=== PATIENT | female | born 1955 | race Caucasian/White ===

== ENCOUNTER 2020-02-09 09:25 | Inpatient (IN) | payer OTHER ==
[~2020-02-09] VITALS: Ht 152.4 cm; Wt 77.6 kg
[~2020-02-09 09:25] MED LIST: BACTRIM DS TAB1 EACH PO; DOXYCYCLINE 10100 MG PO; DUONEB 2.5-0.5 M3 ML INH; FENOFIBRATE145 M1 PO; FENOFIBRATE160 MG PO; LEVAQUIN 500 M500 M2 PO; LEVOTHYROXIN0.125 M1 PO; LOTRISONE CREAM15 GM TOP; METRONIDAZOLE45 GM TOP; OLANZAPINE5 MG PO; PREDNISONE 10 M10 MG PO; PREMARIN0.9 M1 PO; PRILOSEC 20 MG20 MG PO; PROPRANOLOL 20M20 M1 PO; VALIUM5 MG PO; ZOLOFT100 MG PO; ZOLOFT50 MG PO
[2020-02-09 10:20] LABS: URINE BLOOD TRACE (Negative); URINE COLOR YELLOW; URINE GLUCOSE-RANDOM* NEGATIVE (Negative); URINE KETONES NEGATIVE (Negative); URINE PROTEIN (DIPSTICK) TRACE (Negative)
[2020-02-09 10:27] LABS: URINE CLARITY SL HAZY; URINE LEUKOCYTES-REFLEX 1+ (Negative); URINE NITRITE-REFLEX POSITIVE (Negative)
[2020-02-09 10:28] LABS: ICTOTEST (BILI CONFIRMATORY) Negative (Negative); URINE BILIRUBIN NEGATIVE (Negative)
[2020-02-09 10:35] LABS: CALCIUM 8.8 mg/dL (8.5-10.1); POTASSIUM 3.3 mmol/L (3.5-5.1)
[2020-02-09 10:42] LABS: BACTERIA-REFLEX >30 Many /HPF (None Seen); CRYSTALS None Seen /LPF (None Seen); HYALINE CASTS 0-3 Few /LPF (None Seen); SQUAMOUS 4-10 Moderate /LPF (0-3); URINE RBC 0-2 Rare /HPF (0-2); URINE WBC-REFLEX >25 Many /HPF (0-5)
[2020-02-09 10:43] LABS: ALBUMIN 3.1 g/dL (3.4-5.0); DIRECT BILIRUBIN 0.2 mg/dL (<0.1-0.2); TOTAL BILIRUBIN 0.6 mg/dL (0.2-1.0); TOTAL PROTEIN 7.9 g/dL (6.4-8.2)
[2020-02-09 11:21] LABS: ABSOLUTE NEUTROPHILS 7.8 thou/uL (1.4-8.2); BASOPHILS 0.4 % (0.0-2.0); EOSINOPHILS 0.8 % (0.0-3.0); HEMATOCRIT 37.4 % (37.0-47.0); HEMOGLOBIN 12.6 gm/dL (12.0-15.0); MCH 30.3 pg (26.0-34.0); MCHC 33.7 g/dL (28.0-37.0); MCV 90.1 fL (80.0-100.0); PLATELET COUNT 195 thou/uL (150-400); POLYS 85.8 % (36.0-66.0); RBC 4.15 mil/uL (4.20-5.00); RDW 16.6 % (10.5-14.5); WBC 9.1 thou/uL (4.0-11.0)
[2020-02-09 12:24] VITALS: BP 132/43
[2020-02-09 12:57] VITALS: BP 133/57
[2020-02-09 13:10] VITALS: BP 127/54
[2020-02-09 13:31] LABS: AMP/METHAMP Negative (Negative); BARBITURATES Negative (Negative); BENZODIAZEPINES POSITIVE (Negative); COCAINE Negative (Negative); METHADONE Negative (Negative); OPIATES Negative (Negative); PCP Negative (Negative)
[2020-02-09 13:56] LABS: FOLIC ACID 2.1 ng/mL (8.6-58.9); TSH 2.649 uIU/mL (0.358-3.740)
--- NOTE | 2020-02-09 16:43 | NUR ---
ASSUMED CARE OF PT ON ARRIVAL TO UNIT AT APPROX 1300. PT IS PLEASANTLY CONFUSED, AWARES SHE IS IN A HOSPITAL BUT IS UNABLE TO ANSWER ANY ORIENTATION QUESTIONS. HOWEVER, DENIES BEING CONFUSED. SEVERE RASH NOTED TO BODY. WOUND CARE CONSULT PLACED. PT ASKING ABOUT RESUMING HOME MEDS - PSYCH CONSULT PLACED. IV ABX INFSUING PER ORDER. VITALS NORMAL. GOOD APPETITE. ISO PRECAUTIONS IN PLACE WHILE COVID TEST RESULTS. ALL FALL PRECAUTIONS IN PLACE.
[2020-02-09 20:05] VITALS: BP 116/50
--- NOTE | 2020-02-09 22:33 | NUR ---
PT RESTING IN BED TV ON. PT TALKS TO STAFF WITH HER EYES SHUT BUT DOES ENGAGE IN CONVERSATION. CREAM APPLIED TO CHEST, FACE AND PANNUS RASH. PT COMPLIANT WITH MEDS AND HS SNACK. GIRON TO ANGEL. BED ALARM ON. COVID NEGATIVE ENAMELER AND PROVIDER NOTIFIED. PT ALERT TO SELF AND SITUATION, NOT TIME.
--- NOTE | 2020-02-09 23:48 | NUR ---
REPORT GIVEN TO ONCOMING NURSE MID SHIFT. PT DID TRY TO GET OOB TO USE RESTROOM X 1. PT HAD CALLED NURSE IN EARLIER REPORTING HER GIRON HAD FALLEN OUT. BED ALARM ON.
--- NOTE | 2020-02-10 04:03 | NUR ---
ASSUMED CARE OF PATIENT AT APPROXIMATELY 2330. RECEIVED IN REPORT THAT PATIENT CONTINUES TO HAVE RASH OVER MAJORITY OF BODY AND SKIN HAD BEEN CLEANSED WITH CREAM APPLIED PRIOR TO ASSUMING CARE. PATIENT CALLS APPROPRIATELY. FALL PRECAUTIONS IN PLACE. NO OTHER CONCERNS AT THIS TIME. PATIENT APPEARS TO BE PROGRESSING TOWARDS GOALS.
[2020-02-10 04:09] VITALS: BP 149/64
[2020-02-10 05:21] LABS: ABSOLUTE NEUTROPHILS 3.9 thou/uL (1.4-8.2); BASOPHILS 0.7 % (0.0-2.0); EOSINOPHILS 1.4 % (0.0-3.0); HEMOGLOBIN 11.1 gm/dL (12.0-15.0); LYMPHOCYTES 19.2 % (24.0-44.0); MCH 29.9 pg (26.0-34.0); MCHC 32.7 g/dL (28.0-37.0); MCV 91.2 fL (80.0-100.0); MONOCYTES 5.4 % (1.0-8.0); PLATELET COUNT 188 thou/uL (150-400); POLYS 73.3 % (36.0-66.0); RBC 3.73 mil/uL (4.20-5.00); RDW 16.7 % (10.5-14.5); WBC 5.4 thou/uL (4.0-11.0)
[2020-02-10 05:29] LABS: CALCIUM 8.5 mg/dL (8.5-10.1); CREATININE 0.9 mg/dL (0.6-1.0); MAGNESIUM 1.7 mg/dL (1.8-2.4); POTASSIUM 3.3 mmol/L (3.5-5.1)
[2020-02-10 07:40] VITALS: BP 133/54
--- NOTE | 2020-02-10 13:54 | NUR ---
INITIAL ASSESSMENT: SW reviewed chart and spoke with nursing and attending physician. Pt was admitted from [facility] due to AMS/frequent falls/weakness. Pt placed in Enhanced Isolation to r/o COVID-19. Pt's test is negative. Isolation precautions have been discontinued. Pt to transfer off 3W when a room is available. Psych and wound care consulted. Pt is on IV abx. Therapy ordered to evaluate pt for discharge needs. SW spoke with pt via phone. Introduced role of SW. Pt appears to be alert/orientated. Pt reports she lives alone in her apt. Prior to admission, she was not using any DME. No hx of HH services or post-acute placement. Pt's PCP is Dr. Cordova. SW discussed possible discharge needs: post-acute placement v. Home with HH. Pt states she will not need anything when she goes home. Recommendation made for pt to consider post-acute placement. 5N to evaluate pt for possible admission if pt will be agreeable. No weekend discharge planned. ANTON is following to assist as needed with discharge planning.
[2020-02-10] MEDS ORDERED: GLUCOPHAGE500 MG PO (15:00)
[2020-02-10] MEDS ORDERED: DIAZEPAM 5 MG5 M1 PO (15:00)
[2020-02-10] MEDS ORDERED: PROPRANOLOL 20M20 M1 PO (15:01)
[2020-02-10] MEDS ORDERED: ZYPREXA5 MG PO (15:01)
[2020-02-10] MEDS ORDERED: SERTRALINE HCL100 MG PO (15:02)
[2020-02-10] MEDS ORDERED: SYNTHROID125 MC1 PO (15:02)
[2020-02-10] MEDS ORDERED: PREMARIN0.9 M1 PO (15:03)
[2020-02-10] MEDS ORDERED: TRICOR145 MG PO (15:03)
[2020-02-10 16:10] VITALS: BP 126/36
--- NOTE | 2020-02-10 18:04 | NUR ---
RN HAS ASSUMED PT'S CARE AT 0700AM, PT IS A&OX3 AT MOST OF TIME, PT CAN FOLLOW COMMANDS, PT IS CONFUSED AT TIME, PT IS CONTINUING IV ABX AND WOUNG CARE , PT'S VS ARE STABLE, PT DENIES PAIN AND SOB .
[2020-02-10 19:18] VITALS: BP 114/47
--- NOTE | 2020-02-10 19:26 | NUR ---
PT'S HOME MEDICATIONS HAVE UPDATED,
--- NOTE | 2020-02-10 23:18 | NUR ---
REPORT CALLED TO RHODA. CARNES TO BE MOVED TO ROOM 460 VIA BED.
[2020-02-10 23:55] VITALS: BP 132/44
--- NOTE | 2020-02-11 03:32 | NUR ---
PATIENT TRANSFERRED FROM VIA BED WITH RN AND HOTEL RECREATIONAL FACILITIES MANAGER. MACK TO D/D WITH MEREDITH URINE. ALERT TO SELF ONLY. CONFUSION WITH SEVERAL ATTEMPTS TO REORIENT. PATIENT HAS SET HER BED ALARM OFF X4 AT TIME OF NOTE SINCE TRANSFER AT 2345. REPORT GIVEN BY ANNE-MARIE ON 3W BEFORE TRANSFER. GETTING OOB AND NOT STABLE ON HER FEET. MEDICATED WITH DIAZEPAM AND VICODIN IN AN ATTEMPT TO LESSEN PATIENTS ANXIETY. WILL MONITOR.
[2020-02-11 10:04] VITALS: BP 153/87
[2020-02-11 13:28] VITALS: BP 153/87
--- NOTE | 2020-02-11 15:30 | NUR ---
PT IS A&OX2 AND CONFUSED STATE, PT PULLED GIRON OUT THIS MORNING AND DR ROMERO WAS NOTIFIED. PT IS CONTINENT TO BLADDER, FORGETFUL AND IMPULSIVE. FALL PRECAUTIONS IN PLACE, WILL CONTINUE TO MONITOR.
[2020-02-11 16:16] VITALS: BP 138/76
[2020-02-11 19:41] VITALS: BP 134/55
[2020-02-12 05:59] LABS: HEMATOCRIT 34.1 % (37.0-47.0); HEMOGLOBIN 11.1 gm/dL (12.0-15.0); MCH 29.5 pg (26.0-34.0); MCHC 32.5 g/dL (28.0-37.0); MCV 90.8 fL (80.0-100.0); RBC 3.76 mil/uL (4.20-5.00); WBC 6.6 thou/uL (4.0-11.0)
[2020-02-12 06:17] LABS: CALCIUM 8.7 mg/dL (8.5-10.1); POTASSIUM 4.2 mmol/L (3.5-5.1)
[2020-02-12 07:16] VITALS: BP 142/55
[2020-02-12 15:31] VITALS: BP 133/56
--- NOTE | 2020-02-12 16:26 | NUR ---
PT A&OX4, VSS, DENIES PAIN. PATIENT TOLERATING DIET. PATIENT ISNT IMPULSIVE AND CALLS NURSING STATION FOR NEEDS. NO SIGNS OF DISTRESS. WILL CONTINUE TO MONITOR.
[2020-02-12 19:30] VITALS: BP 133/80
--- NOTE | 2020-02-13 05:20 | NUR ---
VSS-AFEBRILE. ALERT AND ORIENTED X 3, CAN GET CONFUSED TO DATE AND WHICH HOSPITAL SHE IS IN. OCCASIONAL C/O GENERALIZED ALL OVER BODY ACHES AND PAINS, PAIN IS PARTIALLY RELIEVED WITH PO PAIN MEDICATION. REMAINS IMPULSIVE, GETTING OUT OF BED WITHOUT CALLING FOR ASSISTANCE. FALL PRECAUTIONS IN PLACE.
[2020-02-13 08:56] VITALS: BP 135/50
--- NOTE | 2020-02-13 08:57 | NUR ---
PATIENT IS A CANDIDATE FOR ACUTE REHAB PER JENSEN PEREIRA WITH DR. MONSON. PATIENT SEEN 02/10/20 FOR REHAB CONSULT. PATIENT EXPRESSED TO FATOUMATA THAT DATE CONCERN REGARDING COSTS. HOTEL ROOM ATTENDANT CONTACTED BY FILM ARCHIVIST ON 02/10/20 AND COSTS DISCUSSED. HOTEL ROOM ATTENDANT TO MEET WITH PATIENT AND SHARE OPTIONS. PATIENT CAN BE ADMITTED TO N IF PATIENT CHOOSES TO COME TO ACUTE REHAB.
--- NOTE | 2020-02-13 10:40 | HC ---
[facility] [place] [address] CONSULTATION Name: PER WEBER Room #: 461-P ADM IN M.R.#: [id number] Admission: 02/09/20 Attend Phys: Yoshi Langford MD Discharge: Date of : 51 Report #: [id number] THIS REPORT FOR: cc: Anil Cordova MD, Rene P. MD Stephens, Thad A. MD ~ CC: Yoshi Cordova DATE OF SERVICE: 02/09/2020 WOUND CARE CONSULTATION PERSONAL PHYSICIAN: Anil Cordova M.D. CHIEF COMPLAINT: Fungal rash. HISTORY OF PRESENT ILLNESS: This is a 64-year-old white female who presents to the Emergency Department for evaluation of frequent falls. The patient was found in the Emergency Department to have urinary tract infection. The patient also found to have significant dermatitis under each breast, under her pannus and around her mouth consistent with a fungal dermatitis. We have been asked to assist in the care of this at this time. The patient denies any other associated wounds. PAST MEDICAL HISTORY: History of bipolar disease, anxiety, depression, recurrent falls, COPD. CURRENT MEDICATIONS: Multiple, I reviewed the patient's medication list. DRUG ALLERGIES: PENICILLIN, SULFA AND CODEINE. SOCIAL HISTORY: The patient smokes 1 pack of cigarettes daily, does not drink alcohol. FAMILY HISTORY: Not pertinent to current medical condition. REVIEW OF SYSTEMS: CONSTITUTIONAL: The patient denies fevers or chills. NEUROLOGIC: The patient complains of overall generalized weakness, but no isolated weakness in arms or legs. EYES: No complaints. ENT: No complaints. CARDIAC: The patient denies chest pain or palpitations, but does have peripheral edema. RESPIRATORY: The patient denies shortness of breath, cough or wheezes. [facility] [address] [place] [address] CONSULTATION Name: PER WEBER Room #: 461-P [facility] IN [facility].#: [id number] Admission: 02/09/20 Attend Phys: Yoshi Langford MD Discharge: Date of : 51 Report #: [id number] GASTROINTESTINAL: The patient denies nausea, vomiting or abdominal pain. GENITOURINARY: The patient is currently being treated for urinary tract infection with urgency and frequency. MUSCULOSKELETAL: No complaints. SKIN: There is fungal rash underneath breast, under her pannus and around her mouth. PHYSICAL EXAMINATION: VITAL SIGNS: Temperature 35.8, pulse 78, respirations 20, BP 149/64. GENERAL: This is an alert and oriented x 3, pleasant white female who is in no obvious distress. HEENT: Normocephalic, atraumatic. Mucous membranes are somewhat dry. Pupils are round. Sclerae are white. There is a fungal rash around in the perioral region with some mild excoriation, but no signs of actual infection. NECK: Supple and nontender. LUNGS: Clear with slightly diminished breath sounds. HEART: Regular. CHEST WALL: Shows fungal dermatitis underneath each breast and extending down onto the abdominal wall and below the pannus. ABDOMEN: Soft, otherwise nontender except for the mild excoriation under the pannus. EXTREMITIES: The patient moves all extremities without difficulty. There is trace to 1+ edema bilateral lower extremities with distal pulses intact. NEUROLOGIC: Cranial nerves 2-12 grossly intact. Motor and sensory grossly intact. LABORATORY DATA: White count 9.1, hemoglobin 12.6, BUN 10, creatinine 0.9, albumin 3.1. IMPRESSION: 1. Fungal dermatitis underneath each breast and the pannus in the perioral region. 2. Diabetes mellitus type 2. 3. Frequent falls. 4. Protein-calorie malnutrition, moderate, with an albumin of 3.1. 5. Urinary tract infection. PLAN: We will start Lotrisone to all rash sites twice daily after a Hibiclens wash. We will max p.o. protein for healing. Continue all other current medications. I appreciate ability to consult. <ELECTRONICALLY SIGNED> By: Tommy Stevens MD 02/13/20 1040 [id number] Tommy Stevens MD /nt
--- NOTE | 2020-02-13 14:00 | NUR ---
Received awake on bed. Due medications given as prescribed, able to swallow meds w/o difficulty. On room air. Vital signs stable. On MS, not on telemetry; no signs and complain of chest pain, crushing sensation and heaviness. On regular diet- tolerating well; no nausea, no vomiting and no abdominal pain noted. On blood sugar monitoring- taken and recorded accordingly; with sliding scale insulin ordered. With SL at R wrist- intact and flushing well; on Iv antibiotics. Assisted in ADLs. Pt confused- re-oriented from time to time; impulsive- gets out of the bed quickly without assistance, kept near nurses station, falls bundle in place. On and off incontinence, able to go to the toilet using walker and gait belt- assisted. Pt very keen to discharge today- Dr Langford informed; a/w ID's recommendation re: antibiotics and pt to be possible discharged to SNF- pt updated and informed; CM informed as well and a/w discharge disposition. Pt became very agitated and wanting to leave the unit and go home, does not want to go back to her room- Dr Langford informed- order for PRN haldol made, given as prescribed. To continue monitoring patient.
[2020-02-13 14:33] VITALS: BP 126/55
[2020-02-13 15:17] VITALS: BP 146/59
--- NOTE | 2020-02-13 16:06 | NUR ---
CARE TEAM RECOMMENDING SKILLED POST ACUTE CARE STAY. 5N ASSESSED AND RECOMMEND SNF. CM MET WITH PT AT BEDSIDE THIS DAY AND INDICATED THE ABOVE. CM PROVIDED SNF LIST FOR REVIEW. PT INDICATED SHE REFUSED TO GO FOR REHAB STAY UPON DC. CM ATTEMPTED PC TO PT'S BROTHER AND GOT VM. CM NOTIFIED DR. ROMERO AND HE INDICATED THAT WE MIGHT LOOK AT DC HOME TOMORROW WITH HH SERVICES AND HOTLINE. CM TO FOLLOW INDICATED WITH DC PLANNING.
[2020-02-13 20:06] VITALS: BP 145/46
[2020-02-13 20:21] VITALS: BP 114/60
--- NOTE | 2020-02-14 03:56 | NUR ---
PATIENT AOX1 CONFUSED AND FORGETING. PAIN CONTROLLED THIS SHIFT.PATIENT HAD CREAM ON BOTH BREAST, GROIN AREA AND RIGHT ELBOW. PATIENT ENCOURAGED FLUIDS. PATIENT AMBULATEDS TO THE BATHROOM SLOWLY WITH STEADY GAIT USING A WALKER.PATIENT IN BED ASLEEP AT THIS TIME BREATHING REGULAR AND UNLABOURED.
[2020-02-14 05:28] LABS: HEMATOCRIT 33.2 % (37.0-47.0); HEMOGLOBIN 10.8 gm/dL (12.0-15.0); MCH 29.4 pg (26.0-34.0); MCHC 32.6 g/dL (28.0-37.0); MCV 90.2 fL (80.0-100.0); RBC 3.68 mil/uL (4.20-5.00); RDW 16.8 % (10.5-14.5); WBC 6.1 thou/uL (4.0-11.0)
[2020-02-14 05:41] LABS: CALCIUM 8.5 mg/dL (8.5-10.1); POTASSIUM 3.6 mmol/L (3.5-5.1)
[2020-02-14 08:00] VITALS: BP 142/55
[2020-02-14] MEDS ORDERED: FLUCONAZOLE 10100 MG PO (08:44)
[2020-02-14] MEDS ORDERED: CEFDINIR300 MG PO (08:44)
[2020-02-14] MEDS ORDERED: FOLIC ACID1 MG PO (08:45)
[2020-02-14] MEDS ORDERED: CLOTRIMAZOLE-BE15 GM TOP (08:45)
[2020-02-14] MEDS ORDERED: B-12500 MCG PO (08:45)
--- NOTE | 2020-02-14 11:03 | NUR ---
Received awake on bed. Due medications given as prescribed.
--- NOTE | 2020-02-14 11:11 | NUR ---
SEEMS TO BE IN GOOD SPIRIT.SHE VOIDED 2X.SHE PLANS TO BE DISCHARGED TODAY AT HOME WITH VISITING NURSES -SEE SPRINKLER FITTER NOTES FOR SPECIFICS . COMFORTABLE NO PAIN.WALKED TO THE BATHROOM AND BACK WITH ASSISTANCE.
--- NOTE | 2020-02-14 11:46 | NUR ---
I have reviewed the student's documentation.
[2020-02-14] MEDS ORDERED: ULTRA-LIGHT RO1 EACH (11:59)
[2020-02-14 14:00] VITALS: BP 115/45
--- NOTE | 2020-02-14 14:34 | NUR ---
Received awake on bed. Due medications given as prescribed. On MS, not on telemetry; no signs of nausea, vomiting and abdominal pain noted. On room air. Vital signs stable. On regular diet- tolerating well; no nausea, no vomiting and no abdominal pain noted. On blood sugar monitoring- taken and recorded accordingly; with sliding scale insulin ordered. Falls bundle in place. Assisted in ADLs. Continent of bowel and bladder, with occassional urgency; able to go to the toilet using walker, gait belt and standby assist. With R FA SL. Possible discharge today- a/w physician's rounds. Pt appears less agitated and irritable today. To continue monitoring patient. Pt seen and examined by Dr Langford this am, discharge orders made- CM informed; a/w delivery of walker; transport and home health to be set up.
[2020-02-14 15:54] VITALS: BP 115/45
--- NOTE | 2020-02-14 15:59 | NUR ---
FAXED REFERRAL TO [facility] HH SPOKE WITH JAVIER IN INTAKE SHE RECEIVED REFERRAL AND CAN ACCEPT. PT DISCHARGING TODAY FAXED DC ORDERS/.SUMMARY RECEIVED CONFIRMATION AND THEY WILL NOTIFY PT TIME OF VISITS.
--- NOTE | 2020-02-14 16:18 | NUR ---
CARE TEAM INDICATED THAT PT IS MEDICALLY STABLE TO DC HOME THIS DAY SHE IS REFUSING POST ACUTE CARE PLACEMENT. PT IS TO DC HOME WITH [facility] PT, OT, NURSING. PT INDICATED SHE DIDN'T WANT THEM BUT CM INDICATED THAT THEY ARE RECOMMENDED AND THAT THEY WILL BE ARRAGNED.[facility] CAN ACCEPT. PT WAS ISSUED A FWW FOR USE UPON DC BY PROVIDER PLUS. CM CALLED AND NOTIFIED PT'S BROTHER WHO IS HIS LISTED CONTACT. CM EXPLAINED THE ABOVE. HE EXPRESSED CONCERN ABOUT PT RETURNING HOME. THERE ISN'T A DPOA IN PLACE AT THIS TIME. CM ARRANGED [facility] FOR PT FOR WC VAN TRANSPORT BETWEEN [id number]. CM TO HOTLINE PT. NO OTHER INTERVENTION INDICATED. CASE CLOSED.
== END 2020-02-14 17:00 | disposition home health service (06) | DRG 689 ==
LOC: ER 09:25 → 3W 12:15 → EROBS 12:15 → 3W 12:59 → 4W 02-10 23:48
PROVIDERS: Emergency Medicine; Nurse Practitioner; ADMIT Hospitalist; ATTEND Hospitalist
DX: N30.90 Cystitis, unspecified without hematuria (principal); G93.41 Metabolic encephalopathy; E44.0 Moderate protein-calorie malnutrition; B96.20 Unspecified Escherichia coli [E. coli] as the cause of diseases classified elsewhere; R21 Rash and other nonspecific skin eruption; N64.59 Other signs and symptoms in breast; F41.9 Anxiety disorder, unspecified; F31.9 Bipolar disorder, unspecified; E11.9 Type 2 diabetes mellitus without complications; B36.8 Other specified superficial mycoses; E03.9 Hypothyroidism, unspecified; L30.4 Erythema intertrigo; J44.9 Chronic obstructive pulmonary disease, unspecified; E87.6 Hypokalemia; F17.200 Nicotine dependence, unspecified, uncomplicated; R41.0 Disorientation, unspecified; M19.90 Unspecified osteoarthritis, unspecified site; E53.8 Deficiency of other specified B group vitamins; Z20.828 Contact with and (suspected) exposure to other viral communicable diseases; Z90.49 Acquired absence of other specified parts of digestive tract; Z90.410 Acquired total absence of pancreas; Z79.84 Long term (current) use of oral hypoglycemic drugs; Z79.899 Other long term (current) drug therapy; Z88.5 Allergy status to narcotic agent; Z88.0 Allergy status to penicillin; Z88.2 Allergy status to sulfonamides; Z91.09 Other allergy status, other than to drugs and biological substances; Z68.33 Body mass index [BMI] 33.0-33.9, adult
CPT/HCPCS: 10047; 10080

== ENCOUNTER 2020-05-17 10:11 | Inpatient (IN) | payer OTHER ==
[2020-05-17] VITALS (37 sets, daily range): BP systolic 74–136; BP diastolic 30–100
[~2020-05-17] VITALS: Ht 152.4 cm; Wt 73.1 kg
[~2020-05-17 10:11] MED LIST changes: +B-12500 MCG PO; +CEFDINIR300 MG PO; +CLOTRIMAZOLE-BE15 GM TOP; +DIAZEPAM 5 MG5 M1 PO; +FLUCONAZOLE 10100 MG PO; +FOLIC ACID1 MG PO; +GLUCOPHAGE500 MG PO; +SERTRALINE HCL100 MG PO; +SYNTHROID125 MC1 PO; +TRICOR145 MG PO; +ULTRA-LIGHT RO1 EACH; +ZYPREXA5 MG PO
[2020-05-17 10:57] LABS: URINE BLOOD TRACE (Negative); URINE CLARITY CLOUDY; URINE COLOR YELLOW; URINE GLUCOSE-RANDOM* NEGATIVE (Negative); URINE KETONES TRACE (Negative); URINE PROTEIN (DIPSTICK) TRACE (Negative); URINE UROBILINOGEN 0.2 E.U./dl (0.2-1.0)
[2020-05-17 11:27] LABS: ABSOLUTE NEUTROPHILS 7.8 thou/uL (1.4-8.2); BASOPHILS 0.6 % (0.0-2.0); EOSINOPHILS 1.1 % (0.0-3.0); HEMATOCRIT 43.3 % (37.0-47.0); LYMPHOCYTES 12.2 % (24.0-44.0); MCH 29.7 pg (26.0-34.0); MCHC 34.5 g/dL (28.0-37.0); MONOCYTES 3.9 % (1.0-8.0); PLATELET COUNT 104 thou/uL (150-400); POLYS 82.2 % (36.0-66.0); RBC 5.04 mil/uL (4.20-5.00); RDW 15.5 % (10.5-14.5); WBC 9.4 thou/uL (4.0-11.0)
[2020-05-17 11:36] LABS: CALCIUM 8.9 mg/dL (8.5-10.1); CREATININE 1.9 mg/dL (0.6-1.0)
[2020-05-17 11:38] LABS: POTASSIUM 3.6 mmol/L (3.5-5.1)
[2020-05-17 11:40] LABS: URINE LEUKOCYTES-REFLEX 3+ (Negative); URINE NITRITE-REFLEX POSITIVE (Negative)
[2020-05-17 11:42] LABS: ICTOTEST (BILI CONFIRMATORY) Negative (Negative); URINE BILIRUBIN NEGATIVE (Negative)
[2020-05-17 11:45] LABS: BACTERIA-REFLEX >30 Many /HPF (None Seen); CASTS None Seen /LPF (None Seen); CRYSTALS None Seen /LPF (None Seen); SQUAMOUS 4-10 Moderate /LPF (0-3); URINE RBC 0-2 Rare /HPF (0-2); URINE WBC-REFLEX >25 Many /HPF (0-5)
[2020-05-17 11:47] LABS: ALBUMIN 3.1 g/dL (3.4-5.0); TOTAL BILIRUBIN 0.7 mg/dL (0.2-1.0); TROPONIN-I 0.08 ng/mL (<0.06)
--- NOTE | 2020-05-17 12:09 | EKG ---
[place] [address] [facility] [place] [address] ELECTROCARDIOGRAM REPORT Name: PER WEBER Room #: [facility]#: [id number] Admission: 05/17/20 Attend Phys: Discharge: Date of : 51 Report #: [id number] [facility] ED Test Date: 2020-05-17 Test Time: 10:34:49 Pat Name: PER WEBER Department: Room: Gender: F Plant Maintenance Mechanic: tha : 1955 Requested By: Maldonado Rodas Order Number: [id number] MD: Rickey Llanos Measurements Intervals [place] Rate: 69 P: FL: QRS: -6 QRSD: 120 T: 246 QT: 449 QTc: 481 Interpretive Statements Atrial flutter LVH w/ repol abnormalities, possible ischemia Compared to ECG 02/16/2014 10:04:35 Possible ischemia now present Sinus rhythm no longer present Poor R-wave progression no longer present Electronically Signed On 05-17-2020 12:09:35 DOUBLE BACK OPERATOR by Rickey Llanos [email or web address] <ELECTRONICALLY SIGNED> By: Rickey Llanos MD, [facility] 05/17/20 1209 1034 103 Rickey Llanos MD, FACC /EPI
--- NOTE | 2020-05-17 14:59 | NUR ---
VAT CONSULTED TO PLACE CVL. 6FR JACC TL CVL PLACED IN LEFT IJ, DOCUMENTED. TRIMMED 25CM AND 5CM EXTERNAL. CXR ORDERED TO VERIFY PLACEMENT. PT TOLERATED WELL.
--- NOTE | 2020-05-17 15:55 | NUR ---
FROM ER, ADMITTED TO ICU #[id number] WITH SEPSIS. LEVOPHED INFUSING 10 MCG/MIN. REDRESSED CENTRAL LINE ACCESS THAT PT PULLED ON WHILE IN CT. PORTABLE CHEST XRAY PENDING FOR CONFIRMATION OF CENTRAL LINE PLACEMENT. NS AND CEFEPIME IV PENDING CONFIRMATION OF LINE PLACEMENT, ALSO. SCATTERED STOOL ON ABD, KYLE LEGS ESPECIALLY FEET AND FINGERNAILS. HAIR WASHED, COMPLETE CHLORHEXIDINE BATH PROVIDED. CENTRAL LINE PLACEMENT CONFIRMED BY LACEY IV TEAM RN PER PORTABLE CHEST XRAY. NS AND CEFEPIME INFUSING.
--- NOTE | 2020-05-17 16:14 | NUR ---
CXR REPEATED, PT PULLED AT DRESSING AND IJ ENROUTE TO ICU FROM ED. TIP LOCATION GOOD PLACEMENT, PER RADIOLOGY. RELEASED FOR USE.
[2020-05-18] VITALS (93 sets, daily range): BP systolic 77–144; BP diastolic 27–108
[2020-05-18 01:57] LABS: BASOPHILS 0.4 % (0.0-2.0); EOSINOPHILS 1.3 % (0.0-3.0); HEMATOCRIT 37.9 % (37.0-47.0); LYMPHOCYTES 11.6 % (24.0-44.0); MCHC 33.1 g/dL (28.0-37.0); MCV 87.6 fL (80.0-100.0); MONOCYTES 5.2 % (1.0-8.0); PLATELET COUNT 107 thou/uL (150-400); POLYS 81.5 % (36.0-66.0); RBC 4.32 mil/uL (4.20-5.00); RDW 15.1 % (10.5-14.5); WBC 9.8 thou/uL (4.0-11.0)
[2020-05-18 02:14] LABS: HEMOGLOBIN 12.5 gm/dL (12.0-15.0)
[2020-05-18 02:20] LABS: CALCIUM 7.7 mg/dL (8.5-10.1); CREATININE 1.9 mg/dL (0.6-1.0); MAGNESIUM 1.4 mg/dL (1.8-2.4)
[2020-05-18 02:30] LABS: POTASSIUM 2.5 mmol/L (3.5-5.1)
[2020-05-18 08:48] LABS: MAGNESIUM 3.1 mg/dL (1.8-2.4)
[2020-05-18 08:53] LABS: POTASSIUM 2.7 mmol/L (3.5-5.1)
--- NOTE | 2020-05-18 10:30 | NUR ---
DONOVAN WEBER CALLED TO INQUIRE REGARDING PT STATUS. UPDATED- PT ON LEVOPHED FOR BP SUPPORT, ANTIBIOTICS AND IV FLUIDS. CONSUMED HER MEAL PREVIOUS EVENING, HOWEVER NO APPETITE THIS AM. REQUESTED A SOCIAL SERVICE CONSULT FOR PLACEMENT POST HOSPITALIZATION. THEN MRS. WEBER CONTINUED TO STATE, "HEENA MCLAUGHLIN(SISTER)- [phone], WE WANT HER INCLUDED IN THE (PLACEMENT) DECISION MAKING PROCESS.
--- NOTE | 2020-05-18 14:48 | NUR ---
Patient admits with UTI/AMS. Admits to ICU. Patient resides at [facility] independent apt. Patient is confused sp with brother. Patient last admissions to [facility] was in Jan. She refused skilled care and dc home with HH/[facility]. Sp with [facility] who reports patient refused their services. Brother reports EMS called the social director/state due to patients condition and condition of apt. Brother reports they have encouraged patient to take a shower and clean apt. Brother reports patient is very sedentary and stays in her chair. He reports she has a cat in apt and doesnt vacum or wipe counters very often. Brother reports patient ambulates independenty but has a walker if needed. He has seen patient 2-3 times and spoken on phone. She was A/Ox4 but last few days confused. He reports apt complex has expressed concern to brother if patient able to reside in independent living. Brother reports patient may need assisted living at dc. Dicussed role of casemgt. Discussed patient has refused skilled/HH in recent past. No DPOA appointed per brother. Brother reports he assisted with "necessities" that patient would need. She would call brother or sister in law for groceries and they would drop off items, Brother reports apt is unkept but not hoarded. Therapy evals likely to be ordered to determine dc planning. casemgt following
--- NOTE | 2020-05-18 21:50 | NUR ---
This RN spoke to Dr. Barcenas after receiving second negative COVID PCR. Orders to DC enhanced precautions.
[2020-05-19] VITALS (48 sets, daily range): BP systolic 89–192; BP diastolic 39–167
--- NOTE | 2020-05-19 01:03 | NUR ---
This RN spoke to Heather Estevez, EDGAR and Nga Munoz, pharmacists regarding critical vanco trough. Lab most likely inaccurate. Vanco trough to be redrawn at 1130 05/19. Continue to give midnight dose per Nga.
[2020-05-19 03:29] LABS: HEMATOCRIT 38.3 % (37.0-47.0); HEMOGLOBIN 12.8 gm/dL (12.0-15.0); MCH 29.4 pg (26.0-34.0); MCHC 33.5 g/dL (28.0-37.0); MCV 87.9 fL (80.0-100.0); RBC 4.36 mil/uL (4.20-5.00); RDW 14.5 % (10.5-14.5); WBC 6.2 thou/uL (4.0-11.0)
[2020-05-19 03:39] LABS: CALCIUM 8.1 mg/dL (8.5-10.1); CREATININE 1.3 mg/dL (0.6-1.0); POTASSIUM 4.3 mmol/L (3.5-5.1)
--- NOTE | 2020-05-19 06:11 | NUR ---
This RN to bedside at 1900. Patient extremely restless, and only oriented to self. Patient did not experience any relief from PRN medications. Patient unable to sleep or relax. Easily irritable and aggitated. Levophed weaned off. VSS and adequate urine output.
--- NOTE | 2020-05-19 13:01 | NUR ---
restless, pulling at restraints, trying to get out of bed, tugging at tubing and wires in attempt to remove. refused meal however she consumed most of her ensure. repositioned for comfort, enabled bed rotation again. haldol iv given. becoming drowsy. vanco trough elevated- 27. noon vanco dose held per pharmacy managment.
[2020-05-20] VITALS (29 sets, daily range): BP systolic 80–125; BP diastolic 37–73
--- NOTE | 2020-05-20 04:40 | NUR ---
PT ORIENTED TO SELF. CALM AND COOPERATIVE OVERNIGHT. FOLLOWS COMMANDS. NO SIGN OF IMPULSSIVENESS OR AGITATION. DENIES PAIN,CHEST DISCOMFORT, NAUSEA OR VOMITING. PT ABLE TO REPOSITION SELF SIDE BY SIDE IN BED. VITALS STABLE NO FEVER. MAINTAINS SR TO SB OR THE MONITOR. WILL CONTINUE WITH POC.
[2020-05-20 04:57] LABS: CALCIUM 7.8 mg/dL (8.5-10.1); CREATININE 1.1 mg/dL (0.6-1.0); POTASSIUM 3.5 mmol/L (3.5-5.1)
[2020-05-20 04:58] LABS: HEMATOCRIT 30.9 % (37.0-47.0); MCH 29.4 pg (26.0-34.0); MCHC 33.5 g/dL (28.0-37.0); MCV 87.7 fL (80.0-100.0); RBC 3.53 mil/uL (4.20-5.00); RDW 14.4 % (10.5-14.5); WBC 5.6 thou/uL (4.0-11.0)
[2020-05-20 05:03] LABS: HEMOGLOBIN 10.4 gm/dL (12.0-15.0)
--- NOTE | 2020-05-20 16:17 | NUR ---
REPORT CALLED TO ANA RUIZ IN CCU.
--- NOTE | 2020-05-20 17:04 | NUR ---
PT TRANSFERRED VIA CCU BED W/ REMOTE SHIFT MANAGER IN PLACE TO CCU ROOM 216. PT TOLERATED MOVE WITHOUT ANY APPARENT DIFFICULTY. ANA RUIZ UPDATED AND BEDSIDE INTRODUCTIONS MADE WITH PT. PT TRANSFERRED IN STABLE CONDITION.
--- NOTE | 2020-05-20 17:25 | NUR ---
ASSUMED CARE OF PT AT APPROX 1700 TRANSFER FROM ICU. SETTLED PT IN ROOM. ASSESSMENT CHARTED. PT IN RESTRAINTS DUE TO PULLING OF TUBES AND LINES AND CRAWLING OUT OF BED TO "TAKE A WALK". PT RELEASED FROM RESTRAINTS DURING MEALS TO SELF FEED. NO DISTRESS NOTED. WILL CONTINUE TO MONITOR AND FOLLOW POC.
[2020-05-21 00:01] VITALS: BP 97/14; BP 97/41
--- NOTE | 2020-05-21 04:06 | NUR ---
ASSUMED PT CARE AROUND 1900. PT IS ORIENTED TO SELF AND UNDERSTANDS SHE IS IN THE HOSPITAL. SHE IS OTHERWISE CONFUSED AND FORGETFUL. NO C/O PAIN. GIRON TO DD WITH ADEQUATE URINE OUTPUT. BILATERAL WRIST RESTRAINTS REMAIN IN PLACE SHE PULLS AT LINES AND GIRON. REPOSITIONED TO PREVENT SKIN BREAKDOWN. NYSTATIN POWDER APPLIED TO RED AREAS UNDER BREAST, PANNUS, AND IN GROIN. FALL PRECAUTIONS IN PLACE. PROGRESSING SLOWLY TOWARD POC GOALS.
[2020-05-21 04:14] VITALS: BP 117/63
[2020-05-21 04:46] LABS: HEMATOCRIT 30.3 % (37.0-47.0); HEMOGLOBIN 10.3 gm/dL (12.0-15.0); MCH 29.8 pg (26.0-34.0); MCV 87.5 fL (80.0-100.0); RBC 3.46 mil/uL (4.20-5.00); RDW 14.1 % (10.5-14.5); WBC 5.3 thou/uL (4.0-11.0)
[2020-05-21 04:55] LABS: CALCIUM 7.4 mg/dL (8.5-10.1); CREATININE 1.3 mg/dL (0.6-1.0)
[2020-05-21 04:57] LABS: POTASSIUM 2.9 mmol/L (3.5-5.1)
[2020-05-21 07:30] VITALS: BP 120/52
[2020-05-21 11:50] VITALS: BP 111/66
--- NOTE | 2020-05-21 13:39 | NUR ---
ASSUMED CARE AT SHIFT CHANGE, ALERT AND ORIENTED X3-4 CONFUSED AND FORGETFUL AT TIMES, BUT FOLLOWS COMMANDS. RETRAINTS ARE OFF AND PATIENT IS COOPERATIVE. DENIES ANY DISCOMFORT AND WILL CONTNUE TO MONITOR.
--- NOTE | 2020-05-21 14:04 | NUR ---
sp with patient today regarding post acute care. She refuses and reports she will dc home when stable. She refused skilled care prev admission and does not allow home health to enter. Discussed post acute and importance of being safe when returning home. Patient lacks insight into her limitations. She was taken off restraints today. Updated phys of her refusal for skilled care.
[2020-05-21 15:30] VITALS: BP 117/52
[2020-05-21 19:32] VITALS: BP 130/6; BP 130/60
[2020-05-22 03:19] VITALS: BP 135/79
--- NOTE | 2020-05-22 03:27 | NUR ---
CRAWLING OUT OF BED AT BEGINNING OF SHIFT. PATIENT CALMED DOWN AND WENT TO SLEEP. REASSURED ON ROUNDS THAT SHE IS SAFE. ASSIST UP TO BATHROOM NEEDED. ORIENTED TO SELF AND PLACE ONLY. REINFORCED ORIENTATION. WORKING ON GOALS AND PLAN OF CARE FOR NOC. PROGRESSING SLOWLY TOWARDS DISCHARGE GOALS. CONTINUE TO ASSES CLOSELY.
[2020-05-22 04:47] LABS: HEMATOCRIT 34.3 % (37.0-47.0); HEMOGLOBIN 11.3 gm/dL (12.0-15.0); MCH 29.3 pg (26.0-34.0); MCV 88.8 fL (80.0-100.0); RBC 3.86 mil/uL (4.20-5.00); RDW 15.1 % (10.5-14.5); WBC 5.1 thou/uL (4.0-11.0)
[2020-05-22 05:11] LABS: CALCIUM 7.5 mg/dL (8.5-10.1); CREATININE 1.1 mg/dL (0.6-1.0); POTASSIUM 3.1 mmol/L (3.5-5.1)
[2020-05-22 08:00] VITALS: BP 139/86
[2020-05-22 11:10] VITALS: BP 127/77
[2020-05-22 15:31] VITALS: BP 120/72
[2020-05-22 19:30] VITALS: BP 112/53
--- NOTE | 2020-05-23 03:03 | NUR ---
CARE ASSUMED 1900. PT ALERT TO SELF. CONFUSED RESTING IN THE CHAIR. PT DENIES CHEST DISCOMFORT, NAUSEA OR VOMITING. INTERMITTENT ST ON ON THE MONITOR BUT MORE OF EKG NOISY. PT DENIES CHEST PALPITATIONS OR LIGHTHEADENESS. STB AMBULATORY TO THE BATHROOM . NO OTHER CONCERNS. WILL CONTINUE TO PROMOTE SAFETY AND FOLLOW POC.
[2020-05-23 04:20] VITALS: BP 135/67
[2020-05-23 05:07] LABS: HEMATOCRIT 30.8 % (37.0-47.0); HEMOGLOBIN 10.4 gm/dL (12.0-15.0); MCH 29.6 pg (26.0-34.0); MCHC 33.8 g/dL (28.0-37.0); MCV 87.6 fL (80.0-100.0); RBC 3.52 mil/uL (4.20-5.00); RDW 14.8 % (10.5-14.5); WBC 4.3 thou/uL (4.0-11.0)
[2020-05-23 05:11] LABS: CALCIUM 7.5 mg/dL (8.5-10.1); CREATININE 1.3 mg/dL (0.6-1.0); POTASSIUM 3.1 mmol/L (3.5-5.1)
[2020-05-23 08:25] VITALS: BP 137/96
--- NOTE | 2020-05-23 10:37 | NUR ---
ASSUMED CARE 0700, PT IS AOX1-2, CONFUSED. PT DENIES PAIN, NAUSEA, TOLERATING DIET WELL. UP WITH STANDBY ASSIST TO BATHROOM. FALL PRECAUTION IN PLACE, PT ROOM CLOSE TO NURSE STATION. PT ENCOURAGED TO CALL FOR ASSISTANCE. PICC IN LEFT IJ IS PATENT WITH SCHEDULED ANTIBOTIC THERAPY. DR. LEACH D/C'D TELE MONITOR, SWITCHED TO MED/SURG STATUS. WILL CONTINUE TO MONITOR.
[2020-05-23 11:36] VITALS: BP 124/81
[2020-05-23 15:26] VITALS: BP 110/61
--- NOTE | 2020-05-23 16:33 | NUR ---
Patient not at candidate for [facility]. She cont to be confused. She thinks we are in apt. Discussed with brother skilled post acute care. He is unsure if patient has a secondary insurance. Left message with medassist for possible medicaid application. emailed brother skilled list. Reviewed with brother discussing with patient skilled care. He is concerned she will not be agreeable.
[2020-05-23 20:00] VITALS: BP 120/59
[2020-05-24 03:10] VITALS: BP 125/55
--- NOTE | 2020-05-24 04:17 | NUR ---
CONFUSED.AGITATED.MEDS GIVEN AND HAS BEEN QUIET IN BED.VITALS STABLE.DENIES PAIN AND SOB.UP WITH ASSIST TO THE BATHROOM.POC CONTINUED.
[2020-05-24 08:15] VITALS: BP 119/55
[2020-05-24 08:37] LABS: HEMOGLOBIN 10.7 gm/dL (12.0-15.0); MCH 29.5 pg (26.0-34.0); MCHC 33.4 g/dL (28.0-37.0); MCV 88.4 fL (80.0-100.0); RBC 3.62 mil/uL (4.20-5.00); RDW 15.4 % (10.5-14.5); WBC 4.1 thou/uL (4.0-11.0)
[2020-05-24 08:45] LABS: CALCIUM 8.2 mg/dL (8.5-10.1); CREATININE 1.1 mg/dL (0.6-1.0); MAGNESIUM 1.1 mg/dL (1.8-2.4); POTASSIUM 3.6 mmol/L (3.5-5.1)
[2020-05-24 12:25] VITALS: BP 123/53
--- NOTE | 2020-05-24 12:53 | NUR ---
Case discussed with the care team and psych. [facility] and [facility]. They will have a bed for her on Saturday 05/26. Pt's brother Anthony updated and agreeable to the dc plan. He reports no dpoa that he is aware of. He is willing to help as needed with dc planning. Should the pt not be able to return to her senior/disabled apt alone, he is open to a memory care unit. Destiny maddox [place] discussed. He is hopeful the pt will be able to complete a DPOA for hc once her meds are stable and that she can return to her apt of many years. He does not feel she should be driving anymore and can help with errands and shopping. He will need to be updated and included in her dc planning efforts from [facility]. Pt up in the chair eating lunch today. She is impulsive and wants to be up walking. Pt is doing well with therapy and her mobility has increased since her admission. Will follow.
[2020-05-24 15:33] VITALS: BP 112/80
--- NOTE | 2020-05-24 16:39 | NUR ---
CALM. GENERALLY COOPERATIVE. ORIENTED TO SELF ONLY. APPETITE BRISK. FALL PRECAUTIONS IN PLACE. CLOSE TO NURSES' STATION.
[2020-05-24 19:30] VITALS: BP 130/60
--- NOTE | 2020-05-25 01:46 | NUR ---
PATIENT HAS BEEN SITTING ON THE RECLINER AND WANTS TO SLEEP ON THE RECLINER.REFUSED ALL HER NIGHT MEDS.PATIENT STATES"THOSE WILL KILL ME".WILL WAKE UP ON AND OFF.UP TO THE BATHROOM WITH STANDBY ASSIST.POC CONTINUED.
[2020-05-25 03:18] LABS: HEMATOCRIT 28.8 % (37.0-47.0); HEMOGLOBIN 9.7 gm/dL (12.0-15.0); MCH 29.7 pg (26.0-34.0); MCHC 33.6 g/dL (28.0-37.0); MCV 88.4 fL (80.0-100.0); RBC 3.26 mil/uL (4.20-5.00); RDW 14.9 % (10.5-14.5); WBC 3.8 thou/uL (4.0-11.0)
[2020-05-25 03:30] LABS: CALCIUM 7.7 mg/dL (8.5-10.1); CREATININE 1.3 mg/dL (0.6-1.0); POTASSIUM 3.3 mmol/L (3.5-5.1)
[2020-05-25 04:40] VITALS: BP 127/68
[2020-05-25 07:48] VITALS: BP 110/61
[2020-05-25 12:04] VITALS: BP 127/84
--- NOTE | 2020-05-25 15:02 | NUR ---
PT AWAKE, ORIENTED TO PERSON AND PLACE ONLY, CONFUSED. DENIES PAIN. VITALS REMAIN STABLE. LEFT IJ REMAINS INTACT AND PATENT, ALL LUMENS ASPIRATED FOR BLOOD AND FLUSHED. GROIN AREA CLEANED AND NYSTATIN POWDER APPLIED PER ORDER. PT CONTINUES TO HAVE BRUISING THIGHS AND GROIN AREA. PT IMPULSIVE THIS AM, STATING THAT SHE WAS GOING HOME WITH HER DAUGHTER. PT REORIENTED AND MEDICATION ADMINISTERED PER ORDER. PT SLEEPING 1030 - 1230 AND FOR 45 MINS AFTER LUNCH. UP WITH CONTACT GUARD ASSIST AND TOLERATED WELL. FREQ. VISUAL CHECKS. CALL LIGHT WITHIN REACH. FALL PRECAUTIONS IN PLACE
[2020-05-25 15:30] VITALS: BP 124/59
[2020-05-25 19:21] VITALS: BP 122/68
[2020-05-26 04:44] VITALS: BP 129/62
--- NOTE | 2020-05-26 07:59 | NUR ---
PATIENT SLEPT THROUGH HALF OF THE NIGHT. ALERT TO SELF AND PLACE; NEEDS REORIENTED FREQUENTLY. PATIENT IS CONFUSED. PT HAS BEEN UP IN THE CHAIR AND BACK IN BED. FALL PRECAUTIONS ARE IN PLACE. USING CALL LIGHT NEEDS REINFORCED BEFORE GETTING UP. CONTINUE TO ASSESS CLOSESLY ACCORDING TO POC.
[2020-05-26 08:33] VITALS: BP 112/62
[2020-05-26 11:14] VITALS: BP 140/64
[2020-05-26 15:01] LABS: HEMATOCRIT 28.8 % (37.0-47.0); HEMOGLOBIN 9.3 gm/dL (12.0-15.0); MCHC 32.4 g/dL (28.0-37.0); MCV 92.6 fL (80.0-100.0); RBC 3.11 mil/uL (4.20-5.00); RDW 15.4 % (10.5-14.5); WBC 3.3 thou/uL (4.0-11.0)
[2020-05-26 15:10] LABS: CALCIUM 8.3 mg/dL (8.5-10.1); CREATININE 1.2 mg/dL (0.6-1.0); MAGNESIUM 1.5 mg/dL (1.8-2.4); POTASSIUM 3.7 mmol/L (3.5-5.1)
[2020-05-26 16:05] VITALS: BP 123/65
--- NOTE | 2020-05-26 17:22 | NUR ---
ASSESSMENT CHARTED. PT ALERT AND ORIENTED TO SELF SOMETIMES TO PLACE. FORGETFUL. DENIED HAVING PAIN OR DISCOMFORT. VSS. UP IN THE CHAIR THIS SHIFT. PLAN TO DISCHARGE TO [facility] IN AM.
[2020-05-26 20:15] VITALS: BP 120/92
[2020-05-27 04:45] VITALS: BP 146/75
--- NOTE | 2020-05-27 05:12 | NUR ---
ASSUMED PATIENT CARE AT 1845. VITAL SIGNS STABLE WITH PATIENT HAVING NO COMPLAINTS OF PAIN OR NAUSEA. ORIENTED TO SELF, PATIENT IS PLEASANTLY CONFUSED AND FREQUENTLY IMPULSIVE. UP MULTIPLE TIMES TO BATHROOM WITH ASSISTANCE INCIDENT FREE. PATIENT IS CONSIDERED A HIGH FALL RISK. POTENTIAL DISCHARGE TO [address] [place] [address] SOON. CONTINUE PLAN OF CARE.
[2020-05-27 10:05] VITALS: BP 137/58
[2020-05-27] MEDS ORDERED: AZITHROMYCIN 2250 MG PO (11:55)
[2020-05-27] MEDS ORDERED: DEPAKOTE 250MG250 M1 PO (11:56)
[2020-05-27] MEDS ORDERED: MAGNESIUM400 MG PO (11:57)
[2020-05-27] MEDS ORDERED: RISPERIDONE 00.25 MG PO (11:57)
[2020-05-27 14:17] VITALS: BP 128/73
--- NOTE | 2020-05-27 15:56 | NUR ---
Assumed care of pt at 0700. Pt confused and impulsive at times. Medically stable to go to [facility] but unable to transfer today per nurse supervisor coffee. Denies pain. Fall precautions in place. Will continue to monitor.
[2020-05-27 17:56] VITALS: BP 137/75
[2020-05-27 19:38] VITALS: BP 136/61
[2020-05-28 05:12] VITALS: BP 133/75
--- NOTE | 2020-05-28 07:26 | NUR ---
ASSUMED CARE OF THE PATIENT AT 1900; AOX2/COOPERATIVE; VSS/ASSESSMENTS CHARTED; NO C/O OF PAIN; RESTED QUIETLY THROUGHOUT THE NOC; PLAN IS FOR PATIENT TO D/C TO [facility] WHEN SPACE/STAFF AVAILABLE TO TRANSFER; WILL CONTINUE TO MONITOR.
[2020-05-28 08:25] VITALS: BP 119/64
--- NOTE | 2020-05-28 10:23 | NUR ---
PER NURSING, PT. IS TRANSFERRING TO [facility] POSSIBLY TODAY. WILL DEFER OT AND CHECK BACK. IF PT. TRANSFERS TO [facility] WILL NEED NEW ORDERS TO RE-START OT.
[2020-05-28 12:50] VITALS: BP 127/63
--- NOTE | 2020-05-28 15:52 | NUR ---
tenative plan for discharge today however [facility] cannot accept today plan to accept in a.m.
[2020-05-28 17:00] VITALS: BP 114/59
--- NOTE | 2020-05-28 18:59 | NUR ---
PT IS AOX1-2 WITH SOME CONFUSION. PT NEEDS REDIRECTION TO SIT DOWN, NEEDS STANDBY ASSIST FOR BATHROOM. PT FALL PRECAUTIONS IN PLACE. CALL LIGHT IN REACH. WILL CONTINUE TO MONITOR.
[2020-05-28 19:36] VITALS: BP 157/92
== END 2020-05-28 19:36 | DRG 871 ==
LOC: ER 10:11 → ICU 13:35 → EROBS 13:35 → 2N 13:35 → ICU 15:29 → 2N 05-20 16:53
PROVIDERS: Emergency Medicine; Internal Medicine; Nurse Practitioner; Nurse Practitioner Family; ADMIT Hospitalist; ATTEND Hospitalist
PROC: 02HV33Z Insertion of Infusion Device into Superior Vena Cava, Percutaneous Approach (ICD-10-PCS; principal; 2020-05-17)
DX: A41.9 Sepsis, unspecified organism (principal); N17.0 Acute kidney failure with tubular necrosis; R65.21 Severe sepsis with septic shock; J18.9 Pneumonia, unspecified organism; E44.0 Moderate protein-calorie malnutrition; G93.40 Encephalopathy, unspecified; L30.4 Erythema intertrigo; R77.8 Other specified abnormalities of plasma proteins; F41.9 Anxiety disorder, unspecified; F31.9 Bipolar disorder, unspecified; D69.6 Thrombocytopenia, unspecified; E03.9 Hypothyroidism, unspecified; F17.210 Nicotine dependence, cigarettes, uncomplicated; N30.90 Cystitis, unspecified without hematuria; B36.9 Superficial mycosis, unspecified; E78.5 Hyperlipidemia, unspecified; Z20.828 Contact with and (suspected) exposure to other viral communicable diseases; Z68.31 Body mass index [BMI] 31.0-31.9, adult; Z90.49 Acquired absence of other specified parts of digestive tract; Z90.710 Acquired absence of both cervix and uterus; Z79.84 Long term (current) use of oral hypoglycemic drugs; Z79.899 Other long term (current) drug therapy; Z88.1 Allergy status to other antibiotic agents; Z88.0 Allergy status to penicillin; Z88.2 Allergy status to sulfonamides; Z91.018 Allergy to other foods; Z28.21 Immunization not carried out because of patient refusal
CPT/HCPCS: 10078; 10081

== ENCOUNTER 2020-05-28 19:17 | Inpatient (IN) | payer OTHER ==
[~2020-05-28] VITALS: Ht 152.4 cm; Wt 73.7 kg
[~2020-05-28 19:17] MED LIST changes: +AZITHROMYCIN 2250 MG PO; +DEPAKOTE 250MG250 M1 PO; +MAGNESIUM400 MG PO; +RISPERIDONE 00.25 MG PO
[2020-05-29 00:01] VITALS: BP 134/65
--- NOTE | 2020-05-29 04:55 | NUR ---
Pt admitted to unit at 1940 via w/c from CCU to room 519B. Report received from Mena @ 2483. Heide Cortes NP, notified of admission. Pt will be followed by Dr. Zhao while inpatient for medical needs. Dr. Aranda, notified of admission and received admission and medication orders. Pt A & O x 1-2. Pt is calm, cooperative and poliet with admission and nursing processes. Pt transfered from w/c to bed with standby assist x 1. Bed alarm on and in place. Pt considered a high fall risk, as she has had per her report, recent falls. High fall risk protocol implemented and in place. Bed alarm on while in bed. Pt has +1 bilateral edema to lower extremities. Arrived to unit with compression knee highs on, which were removed during admission and feet elevated. Pt has small scab to top of 2nd toe on left foot. Pt has yeast infection/redness bilaterally under breasts and in groin area. Pt is calm, cooperative and pleasant. Pt is easily redirectable. Pt compliant with wearing a mask, especially if out of room. Pt has orders for valporic acid and ammonia labs which were drawn this morning. Pt denies any pain. Pt reports she has had increased number of falls in past several months. Can be implusive/forgetful at times. Per report has been unsteady at times. Transferred from w/c to bed with SBA. Pt vital signs WNL/stable upon admission to unit. Pt is on regular diet with thin liquids. Receives glucerna shakes BID with meals as supplement. Admission process and consents signed and completed. Pt denies anxiety, depression, SI/HI at time of admission. Will continue to monitor for changes in behavior and safety. Pt is on q12min rounds.
[2020-05-29 08:00] VITALS: BP 110/61
--- NOTE | 2020-05-29 08:38 | NUR ---
PT WALKING AROUND UNIT WITH WALKER AT TIMES. PT STATED SHE WANTS TO GO HOME. ASKING ABOUT HER CLOTHES AND SHOES. ENCOURAGED HER TO GO TO DINING ROOM TO EAT BREAKFAST. PT TOOK MEDS WHOLE, JUST WANTED TO KNOW WHAT THERY ARE.
--- NOTE | 2020-05-29 08:40 | NUR ---
PT DIDN'T WANT TO EAT BREAKFAST THIS AM. PT STATED SHE WAS NOT HUNGRY.
[2020-05-29 09:30] VITALS: BP 110/61
--- NOTE | 2020-05-29 10:23 | NUR ---
PT WORKING WITH OT AT THIS TIME. PT STATED SHE WANTED TO LAY DOWN IN HER OWN BED THAT SHE WAS TIRED. ENCOURAGED HER TO LAY DOWN IN BED IN HER ROOM. PT STATED NO I JUST WANT TO GO HOME.
--- NOTE | 2020-05-29 17:00 | NUR ---
ANTON called Anthony Chung [phone], Pt's brother. Anthony did not believe the Pt had a DPOA, but is willing to be the DPOA. Anthony provide a brief history of the Pt. The Pt had been functioning independently until recently. When Pt begin to have behavioral issues including walking arounf apt complex naked. Pt stopped taking her medications about a month ago according to Anthony. The Pt sees Dr. Anil Cordova. However Pt does not see a psychiatrist or a therapist. ANTON team will continue to follow
--- NOTE | 2020-05-29 18:00 | NUR ---
PT TALKING TO SARAH ON PHONE, GAVE HIM THE CODE FOR HER AND OUT NUMBER FOR THIS UNIT.
[2020-05-29 19:06] VITALS: BP 99/78
--- NOTE | 2020-05-30 05:42 | NUR ---
Assumed care of pt at 1900. Pt up in day room throughout earlier part of shift watching tv. Pt A&O x 1 to self. Pt is pleasant, calm, cooperative and compliant w/assessment & medications. No PRNs administered this shift. Pt is ambulatory, has unsteady gait at times, and utilizes a walker. Pt denies pain. Pt denies hallucinations, SI/HI, but does appear to be having delusions of what she states to this tech writer as 5 cats sitting in day room under where the windows are. Pt also states that she has had conversations with 2 people, which are unseen at this time, that she is bothered by who will not let her see her mom who is as she states right over there (pointing) and will not let any of them in the apartment, and if they do will not let them out. Pt is continent. Pt unsure when LBM was, but denies issues with constipation. High risk fall protocols implementd for this pt. Will continue to monitor for changes in mood/behavior and for safety.
[2020-05-30 07:33] VITALS: BP 107/44
[2020-05-30 09:39] VITALS: BP 107/44
--- NOTE | 2020-05-30 10:15 | NUR ---
1000 RESUMMED CARE FROM OVERNIGHT SHIFT THIS AM, PATIENT IN ROOM QUIET. PATIENT IS ALERT AND ORIENTED TO SELF AND PLACE, PATIENTS ABDOMEN SOFT ROUND BOWEL SOUNDS PRESENT. PATIENTS LUNGS CLEAR PATIENT DENIES SI/HI/AH/VH AT PRESENT. PATIENT CALM COOPERATIVE WILL CONTINUE TO MONITOR PATIENT FOR SAFETY AND BEHAVIORS.
[2020-05-30 20:34] VITALS: BP 132/54
--- NOTE | 2020-05-31 04:07 | NUR ---
Assumed care of patient at 1900. Pt up in dayroom at start of this shift watching tv. Pt is A&O x 1 to self. Pt calm, pleasant, cooperative and compliant with assessment and scheduled medications. Pt does seem confused as to she believes she is to be leaving to go back home tonight and is looking for her car. Pt has been easily redirected. Pt denies any pain. Pt denies SI/HI. Pt is ambulatory with walker. Pt is a high fall risk and has fall risk protocols implemented. Pt last BM is unknown, pt has active bowel sounds. Will continue to monitor for any changes in mood and/or behavior and safety per hospital protocol.
[2020-05-31 09:13] VITALS: BP 112/55
--- NOTE | 2020-05-31 10:49 | NUR ---
Alert and orientated to name and place. Stated a day in September when asked about date. When told it was 05/31 she stated, "I guess I flunked that one." Calm, cooperative and compliant. Sleeping in room when not out for meals. Denies SI/HI. Breath sounds clear t/o. Reg HR auscultated. Color pink with brisk capillary refill and palpable peripheral pulses. Independent with voiding. Active bowel sounds over soft, rounded abdomen. Large dark purple bruises on abdomen. Reddness under breasts, inguinal and abdominal folds, cleaned and nystatin applied. Regular, steady gait with walker.
[2020-05-31 19:11] VITALS: BP 124/42
--- NOTE | 2020-06-01 05:07 | NUR ---
Assumed care of pt @ 1900. Pt very confused this shift. Refused HS meds as she stated that she did not need them et did not trust that the physician "knows what they're doing". Pt awake most of noc sitting in gerichair in dayroom. Pt kept asking for purse so that she could pay the bill and go home. At one point during the noc, pt stated that this is where she works. VSWNL. Health assessment with no abnormalities noted at present time. Denies SI/HI/AVH at present time. Currently resting in gerichair in dayroom with eyes open. Will continue to monitor per unit protocol.
[2020-06-01 07:00] VITALS: BP 129/51
[2020-06-01 09:08] VITALS: BP 129/51
--- NOTE | 2020-06-01 09:42 | NUR ---
ASSUMED CARE AT 0700 THIS MORNING. PT. AWAKE, ALERT, PLEASANT AND COOPERATIVE. SHE STOOD UP TO GET INTO A CHAIR FOR BREAKFAST, SHE HAD BMON THE BACK OF HER PANTS AND WAS TAKEN TO BE CHANGED BEFORE SHE ATE. SHE WAS COOPERATIVE WITH THIS PROCESS. SHE WAS COOPERATIVE WITH TAKING HER MORNING MEDICATIONS, EATING. SHE PRESENTS WITH FLAT AFFECT AND SOMBER MOOD. SHE IS ANSWERING QUESTIONS APPROPRIATELY.
--- NOTE | 2020-06-01 10:22 | NUR ---
ANTON met with Pt concerning DPOA. The Pt was able to explain what she thought a DPOA was. SW educated Pt on the importance of paper work and brainstormed on people she trust. Pt was able to identify her brother as someone she could trust with healthcare decisions. Pt is not yet ready to sign a DPOA document but did understand the importance. SW team will continue to follow up.
[2020-06-01 19:23] VITALS: BP 89/54
--- NOTE | 2020-06-02 05:49 | NUR ---
Assumed care of pt @ 1900. Pt calm et cooperative this shift. Took medications whole without difficulty. Ambulates the halls ad kervin with steady gait. VSWNL. Health assessment with no abnormalities noted at present time. Denies SI/HI/AVH at present time. Socialized with peers in dayroom until HS. Up several times throughout the noc. Currently sitting in dayroom watching tv. Will continue to monitor per unit protocol.
[2020-06-02 09:38] VITALS: BP 118/59
--- NOTE | 2020-06-02 11:36 | NUR ---
withdrawn to room this am going to lay down almost immediatly AFTER BREAKFAST-REFUSED AM EXERCISE GROUP TELLING RT SHE DIDN'T FEEL GOOD. DURING AM ASSESSMENT WHEN QUESTIONED IS VAGUE BUT FINALLY STATES "DOESN'T FEEL RIGHT IN MY HEAD" WHEN ASKED IF THAT MEANT WAS HAVING "BAD THOUGHTS" LIKE SI/SH/HI STATES "NO NOT AT ALL JUST LIKE FRANCIA FUZZY-HEADACHE" OFFERED TYLENOL BUT PT REFUSES. FLAT AFFECT. MINIMAL PEER INTERACTION-ORIENTED TO PERSON,PLACE NO TO GAIT. DENIES PAIN. NO FEVER,COUGH OR OUTSTANDING FINDINGS ON AM ASSESSMENT-
[2020-06-02 19:30] VITALS: BP 107/50
--- NOTE | 2020-06-03 05:12 | NUR ---
Assumed care of pt @ 1900. Pt calm et cooperative this shift. Took medications whole without difficulty. Ambulates the halls ad kervin with steady gait. VSWNL. Health assessment with no abnormalities noted at present time. Denies SI/HI/AVH at present time. Socialized with peers in dayroom until HS. Currently resting in bed with eyes closed. Will continue to monitor per unit protocol.
[2020-06-03 08:01] VITALS: BP 132/64
[2020-06-03 09:34] VITALS: BP 132/64
--- NOTE | 2020-06-03 11:26 | NUR ---
1120 RESUMMED CARE FROM OVERNIGHT SHIFT THIS AM, PATIENT IN ROOM QUIET. PATIENT ATE BREAKFAST TOOK MEDICATION WITHOUT INCIDENCE, PATIENTS ABDOMEN SOFT ROUND BOWEL SOUNDS PRESENT. PATIENTS LUNGS CLEAR PATIENT ORIENTED TO SELF AND PLACE. PATIENT IS SOMETIMES FORGETFUL PATIENT DENIES SI/HI/AH/VH AT PRESENT. PATIENT CALM COOPERATIVE WILL CONTINUE TO MONITOR PATIENT FOR SAFETY AND BEHAVIORS.
--- NOTE | 2020-06-03 16:00 | NUR ---
SW completed SLUMS with patient. Patient scored 11. SW team will continue to follow.
--- NOTE | 2020-06-04 03:46 | NUR ---
Assumed care of patient this pm shift. Patient is pleasantly confused, calm and cooperative. Affect is flat. Patient denies pain, denies hi/si. Takes medications whole with thin fluids. Ambulates with a steady gait. Assessment shows no signs of acute distress. Patient asked for cat food for her cat that is here on the unit. Patient is redirectable. Continent of bowel and bladder. We will continue to monitor patient per hospital protocol.
[2020-06-04 08:48] VITALS: BP 102/54
--- NOTE | 2020-06-04 11:40 | NUR ---
CALM AND COOPERATIVE TODAY. SITTING QUIETLY IN DAYROOM -FLAT AFFECT-MINIMAL PEER INTERACTION. DENIES SI/SH/HI. NO NOTED PSYCHOSIS SO FAR THIS SHIFT ALTHOUGH IT WAS REPORTED BY HOSPITAL STAFF PHARMACIST RN PT WAS SEEING CATS-DENIES THIS WHEN QUESTIONED DIRECTLY DURING 1;1. APPETITE GOOD.DENIES PAIN/DISCOMFORT-NO NOTED [id number]-IPHPIWR AN EPISODE OF LOOS STOOL THIS AM-ASKED TO ALER STAFF AFTER NEXT BM TO VERIFY AND RECORD IN AN ACCURATE MANNER.GAIT STEADY
--- NOTE | 2020-06-04 13:33 | NUR ---
ANTON met with Pt concerning DPOA paperwork. Pt stated she would like to sign and wanted to put her brother, Anthony Chung, as her DPOA. ANTON completed the form with the Pt. A copy was filed in the chart. A copy was emailed to anthony at [email or web address]
[2020-06-04 17:46] VITALS: BP 124/72
--- NOTE | 2020-06-04 18:54 | NUR ---
AT APPROX 1610 GOT UP FROM BED AND WALKED TO DAYROOM-OBSERVED BY UC TO FALL TO FLOOR 1ST TO LEFT KNEE,THEN RIGHT KNEE AND THE TURNED OVER AND SAT ON BOTTOM. PT STATES WHEN ASKED IF SHE HAD TRIPPED THAT SOMEONE HAD "WUSHED" FOR HER TO FALL. STATING WHEN ASKED TO REPEAT "NO THEY DIDN'T PUSH THEY WUSHED FOR IT" DENIES TRIPPING OR STUMBLING. DENIES DIZZINESS-NOTED TO HAVE SMALL ABRASION TO LEFT KNEE CAP-NO BLEEDING,LACERATIONS,BRUISONG NOTED ON EXAM. ABLE TO MOVE LE WITHOUT PAIN-FULL ROM. BP 124/74-P70 R-12 02 SAT 98 PERCENT. PT ASSISTED TO WHEELCHAIR-INSTRUCTED TO NOT GET UP ON OWN. CHAIR ALARM PLACED-PLACED ON FALLS PRECAUTIONS. DR PUGA/DR JIMENEZ AND NURSING MANAGER PRINTING NOTIFIED,
[2020-06-04 19:33] VITALS: BP 120/56
[2020-06-04 20:15] VITALS: BP 120/56
--- NOTE | 2020-06-05 00:15 | NUR ---
PATIENT WAS ASLEEP BUT EASILY AROUSED WHEN I CAME ON SHIFT AT 1900. SHE DENIES PAIN, SI/HI/AVH. PT HAS 2+EDEMA IN BLE'S. HEART RATE REGULAR AND S1S2 HEARD. LCTA BILATERALY. PATIENT AWOKE AGAIN AROUND 2330. DID ORTHOSTATIC BP'S AT THIS TIME THAT WERE ORDERED EARLIER IN THE DAY. LAYING DOWN BP 130/69 P 74. SITTING; BP WAS 123/70 P 78 AND STANDING B/P 94/62 P78. PATIENT DENIES DIZZINESS. PATIENT IS WALKING WITH SLOW STEADY GAIT. A/0X 1-2. PATIENT HAS BEEN UP TO TOILET X 1 TONIGHT SO FAR. FLAT EFFECT BUT PLEASANT AND ABLE TO COMMUNICATE HER NEEDS. NO BEHAVIORS. BED IN LOW POSITION AND BED ALARM IS ON. ROUTINE ROUNDS TO ASSESS STATUS AND SAFETY OF PATIENT.
[2020-06-05 09:13] VITALS: BP 114/43
[2020-06-05 09:23] VITALS: BP 114/43
--- NOTE | 2020-06-05 11:08 | NUR ---
ANTON spoke to pt's brother/DPOA Anthony who had questions about getting a financial DPOA. ANTON explained we are able to help with DPOA for healthcare decisions only. He inquired about picking patient up from hospital and taking her to the bank so he can be added to her accounts. He reports her rent and utilities have not been paid in two months and he is concerned about her losing her apartment and utilities being shut off. SW encouraged brother to speak with each entity and explain the situation to see if a rick period can be extended. Brother inquired about pt's discharge date and plan. ANTON explained it has been recommended that patient go to a SNF upon discharge later this week. Brother seemed satisfied with answers provided. SW team will continue to follow.
--- NOTE | 2020-06-05 11:12 | NUR ---
ANTON faxed referrals to the following: [facility] [phone] [facility] [phone] [facility] [phone] [place] [phone] [facility] [phone] [place] [phone] [facility] [phone] SW team will continue to monitor.
[2020-06-05 11:50] VITALS: BP 114/43
--- NOTE | 2020-06-05 12:10 | NUR ---
ASSUMED CARE AT 0700 TODAY. PT. UP DRESSED IN HOSPITAL CLOTHING. SHE CAME ONTO THE UNIT FOR BREAKFAST. SHE WAS COOPERATIVE WITH EATING MOST OF HER BREAKFAST, ASSESSMENT AND TAKING HER MORNING MEDICATIONS. SHE SPENDS MOST OF HER TIME IN BED BETWEEN MEALS, REFUSING RT GROUP. SHE HAS BEEN PLEASANT AND COOPERATIVE WITH STAFF AND PEERS. NO AGRESSIONS NOTED. SHE ATE ALL HER LUNCH. SHE PRESENTS WITH FLAT AFFECT AND SOLUMN MOOD.
[2020-06-05 19:40] VITALS: BP 105/49
--- NOTE | 2020-06-06 00:11 | NUR ---
PATIENT WAS IN BED WHEN I ASSUMED CARE OF PATIENT AT 1900. SHE CAME OUT OF ROOM AFTER I HAD FINISHED HER ASSESSMENT AND GAVE HER HER HS MEDS. PATIENT DENIES PAIN. NYSTATIN POWDER APPLIED UNDER BREAST AND ABDOMINAL FLAP. AREAS UNDER BREAST APPEAR HEALED AND SHE STATES THEY ARE NOT HURTING ANY LONGER. SOME REDNESS AND SORENESS AROUND UMBILICAL AREA. PATIENT IS A/0X1-2 AND CONFUSED AT TIMES. BP WAS LOW THIS EVENING 105/49. NO DIZZINESS. PROPANOLOL IS ON HOLD FOR NOW. PATIENT DECLINED HS SNACK THIS EVENING. SHE SAT OUT IN DINING ROOM AND SLEPT IN CHAIR BEFORE GOING TO BED AT 2200. PATIENT CONTINUES TO HAVE 2+ SWELLING IN HER FEET BILATERALLY. ENCOURAGING HER TO ELEVATE. PATIENT STEADY ON FEET TONIGHT WHEN WALKING. SHE IS UNSTEADY WHEN SHE FIRST GETS UP AND STARTED. DENIES PAIN, SI/HI/AVH. BED IN LOW POSITION AND BED ALARM IS ON. ROUTINE ROUNDS TO ASSESS FOR SAFETY AND STATUS OF PATIENT.
[2020-06-06 08:48] VITALS: BP 119/74
--- NOTE | 2020-06-06 11:45 | NUR ---
AT APPROX. 0840 BED EXIT ALARM SOUNDED-UPON ENTERING ROOM PT NOTED TO BE SITTING ON FLOOR OF SHOWER -SITTING ON ANNE-MARIE USED SHOWER DOOR STATES "I FELL-I HIT MY HEAD" PT POINTS TO BACK OF HEAD MIDLINE-UPON ASSESSMENT NO NOTED REDNESS,SWELLING,BRUISING,LACERATIONS OR UNEVEN ESS IN SCALP CONTOUR THAT WOULD INDICATE INJURY. PT DOES REPORT AREA TO TENDER TO ISODP-SATKE-WMVBU EQUAL BILATERALLY. DENIES VISUAL DISTURBACNE OR DIZZINESS. DENIES NAUSEA. ORIENTED X3. VS CHECKED BP 131/83-P74 R-14 02 SAT 95 PERCENT. PT ASSISTED TO WC-EDUCATION REPEATED RE NOT GETTING UP ON OWN. STATES "I HAD TO GO TO THE BATHROOM-I TRIPPED AND LOST MY BALANCE-I LEANED AGAINST THAT (POINTING TO ANNE-MARIE) I THOUGHT IT WAS A WALL.
--- NOTE | 2020-06-06 12:21 | NUR ---
ANTON contacted Pt's brother, Anthony, concerning placement. Anthony does not have a prefrence over area for SNF. Anthony was concerned about a finicial DPOA. ANTON informed [facility] only does the healthcare and he would need to speak to an corporate attorney concerning the financial. ANTON will continue to follow
[2020-06-06 15:22] LABS: HEMATOCRIT 30.5 % (37.0-47.0); HEMOGLOBIN 9.9 gm/dL (12.0-15.0); MCH 30.4 pg (26.0-34.0); MCHC 32.6 g/dL (28.0-37.0); MCV 93.2 fL (80.0-100.0); RBC 3.27 mil/uL (4.20-5.00); RDW 16.3 % (10.5-14.5); WBC 3.7 thou/uL (4.0-11.0)
[2020-06-06 15:50] LABS: ALBUMIN 2.7 g/dL (3.4-5.0); CREATININE 1.5 mg/dL (0.6-1.0); POTASSIUM 3.6 mmol/L (3.5-5.1); TOTAL BILIRUBIN 0.2 mg/dL (0.2-1.0); TOTAL PROTEIN 6.8 g/dL (6.4-8.2)
[2020-06-06 19:23] VITALS: BP 112/79
--- NOTE | 2020-06-07 03:46 | NUR ---
Assumed care of patient this pm shift. Patient in good spirits, confused but redirectable. Patient denies pain. Denies hi/si. Needs assist x1 for toileting. Takes medications whole with thin liquids. Blunted affect. Patient has a wobbly gait and is considered a falls risk. Assessment shows no signs of acute distress. Slept very little this evening. Stayed mostly in the dayroom throughout the night. We will continue to monitor per hospital policy.
[2020-06-07 07:24] VITALS: BP 127/58
[2020-06-07 08:50] VITALS: BP 98/53
--- NOTE | 2020-06-07 12:14 | NUR ---
Pt seen for LOS. Pt appears with fair to good appetite, consuming 75-100% of most meals. Pt with no c/o GI distress at present. Weight on admit noted at 73.7 kg, no new wt to assess. No pressure ulcers noted. Pt remains low nutritional risk.
--- NOTE | 2020-06-07 16:09 | NUR ---
ANTON spoke with Gianna at [facility] who informed they are willing to accept the Pt into [facility] for SNF. D/c has been set for 06/08/2020 @10AM. Pt is in agreement with the placement. ANTON notified the Pt's DPOA, Anthony Chung.
[2020-06-07 19:16] VITALS: BP 98/53
--- NOTE | 2020-06-07 20:15 | NUR ---
Assumed patient care at 0700. patient was sitting in the day room on a wheelchair. she participated in the group activities. patient vital signs were stable, patient was alert and oriented x2, she denies SI/HI. PATIENT was CO-OPERATIVE WITH ASSESSMENT AND MEDICATION. EDEMA WAS NOTED ON BILATERAL FEET DURING ASSESSMENT. JAMES HOSE WAS APPLIED TO BOTH FEET.NSYSTATIN WAS APPLIED UNDER PATIENT BREAST, ALSO UNDER THE FLAP OF PATIENT STOMACH. PATIENT ABULATES VIA WHEELCHAIR BECAUSE SHE IS UNSTEADY ON HER FEET. WILL CONTINUE TO MONITOR PATIENT.
--- NOTE | 2020-06-08 04:58 | NUR ---
Assumed care of pt @ 1900. Pt calm et cooperative this shift. Took medications whole without difficulty. Ambulates with assistance of w/c. VSWJESSICA. Health assessment with no abnormalities noted at present time. Denies SI/HI/AVH at present time. Socialized with peers in dayroom until HS. Currently resting in bed with eyes closed. Will continue to monitor per unit protocol.
[2020-06-08 07:00] VITALS: BP 113/79
[2020-06-08 09:20] VITALS: BP 113/79
[2020-06-08] MEDS ORDERED: NYAMYC15 GM TOP (09:39)
[2020-06-08] MEDS ORDERED: RISPERIDONE 00.25 MG PO (09:39)
[2020-06-08] MEDS ORDERED: DEPAKOTE500 MG PO (09:39)
[2020-06-08] MEDS ORDERED: TRICOR145 MG PO (09:39)
[2020-06-08] MEDS ORDERED: PROPRANOLOL 1010 MG PO (09:39)
[2020-06-08] MEDS ORDERED: LORAZEPAM 0.50.5 MG PO (09:39)
[2020-06-08] MEDS ORDERED: B-12500 MCG PO (09:39)
[2020-06-08] MEDS ORDERED: FOLIC ACID1 MG PO (09:39)
[2020-06-08] MEDS ORDERED: COLACE 100 MG100 MG PO (09:40)
[2020-06-08] MEDS ORDERED: PROTONIX 20 MG20 MG PO (09:40)
--- NOTE | 2020-06-08 10:20 | NUR ---
Alert and orientated to person and place but not to day or situation. Denies SI/HI. Able to ambulate a few steps to WC. Calm, cooperative and compliant. Breath sounds clear. Reg HR auscultated. Color pink with brisk capillary refill and palpable peripheral pulses. +2-+3 edema in lower extremities, johnny hose in place. Active bowel sounds over soft, rounded abdomen. Unable to obtain UA last night d/t incontinence. Report called to facility and gave to Melvin Verma. Attempted to contact Anthony Chung at [phone]. states he is out of town and that she will give msg for him to call when she is able contact him. Discharge instructions given to pt, will send copy to facility with belongings. Currently sitting in in dining room without s/o distress.
--- NOTE | 2020-06-11 09:40 | NUR ---
DPOA Anthony Laurasony returned phone call from 06/08/19. Had questions r/t transfer to [place] and wanted to know results of evaluation. Given phone number to [place] after providing privacy code.
== END 2020-06-08 13:00 | DRG 885 ==
LOC: SBH
PROVIDERS: ADMIT Psychiatry & Neurology Psychiatry; ATTEND Psychiatry & Neurology Psychiatry
DX: F31.9 Bipolar disorder, unspecified (principal); F03.91 Unspecified dementia, unspecified severity, with behavioral disturbance; E44.0 Moderate protein-calorie malnutrition; F41.9 Anxiety disorder, unspecified; F17.200 Nicotine dependence, unspecified, uncomplicated; K59.00 Constipation, unspecified; R60.0 Localized edema; E03.9 Hypothyroidism, unspecified; Z20.822 Contact with and (suspected) exposure to COVID-19; Z88.5 Allergy status to narcotic agent; Z90.710 Acquired absence of both cervix and uterus; Z88.0 Allergy status to penicillin; Z91.018 Allergy to other foods; Z88.2 Allergy status to sulfonamides; Z68.31 Body mass index [BMI] 31.0-31.9, adult; Z79.899 Other long term (current) drug therapy; Z79.84 Long term (current) use of oral hypoglycemic drugs; Z90.49 Acquired absence of other specified parts of digestive tract
CPT/HCPCS: 10880